=== PATIENT | male | born 1950 | race Caucasian/White ===

== ENCOUNTER 2021-07-04 11:16 | Outpatient (REF) | payer OTHER, SELFPAY ==
[2021-07-04 12:19] LABS: Blood Urea Nitrogen 21 mg/dL (9-16); Estimated Glomerular Filt Rate > 60
== END 2021-07-04 11:17 | disposition home or self-care (01) ==
LOC: HO.LAB 11:16
PROVIDERS: Visit Provider Psychiatry & Neurology Neurology
DX: Z01.812 Encounter for preprocedural laboratory examination (principal); G45.9 Transient cerebral ischemic attack, unspecified
CPT/HCPCS: 36415; 82565; 84520

== ENCOUNTER 2021-07-10 08:26 | Outpatient (REF) | payer OTHER, SELFPAY ==
--- NOTE | ~2021-07-10 | CT_ITS ---
EXAMINATION: CT ANGIOGRAM BRAIN, HEAD CLINICAL INFORMATION: 71-year-old with transient cerebral ischemic attack. COMPARISON: None TECHNIQUE: Test bolus sequences followed by intravenous administration 100 mL of Omnipaque 350 intravenous contrast. Helical imaging was performed in the axial plane from the skull base to the vertex. Delayed postcontrast imaging of the head was also performed. The data was processed at the aeronautical engineering technologist workstation for generation of MIP sequences. The degree of stenosis determined by NASCET criteria. This CT examination was performed using dose optimization techniques as appropriate, variously including the following: *Automated exposure control *Adjustment of mA and/or kV according to patient size (this includes techniques or standardized protocols for targeted exams where dose is matched to indication/reason for exam; i.e. extremities or head) *Use of iterative reconstruction technique Technical note: Study was limited at the skull base due to motion and streak artifact partially obscuring visualization of the lateral and horizontal petrous segments of both ICAs. DLP: 2236 mGy-cm FINDINGS: CTA: The visualized extracranial internal carotid arteries are patent and normal in caliber with smooth contours. Visualization of the internal carotid arteries at the skull base is limited due to artifacts as described above. Within these limitations, there is no significant focal stenosis suspected on either side. The vertical petrous, precavernous and cavernous, ophthalmic and supraclinoid segments of both ICAs are better visualized and demonstrate normal caliber and configuration. The M1 segments are bilaterally symmetric and are normal in caliber and configuration. The MCA bifurcations and the M2 branches are patent and appear normal in caliber. The A1 segments are bilaterally patent and are symmetric with a normal appearance to the A2 segments and anterior communicating artery. The visualized extradural vertebral arteries are patent and normal in caliber bilaterally and appear codominant. The intradural vertebral arteries are patent and normal in caliber. The basilar artery is normal in caliber and configuration. The superior cerebellar artery origins are visualized bilaterally. The posterior cerebral arteries are patent and normal in caliber. The posterior communicating arteries are not visualized. CT BRAIN: Note is made of a 4.4 x 2.8 x 1.9 cm avidly enhancing extra-axial mass seen along the right parietal convexity in a parasagittal location abutting the falx cerebri, with adjacent vasogenic edema and increased local regional vascularity, consistent with a meningioma. No associated hyperostosis is identified. Normal contrast enhancement is still maintained within the adjacent superior sagittal sinus. The remainder of the brain is normal in morphology and attenuation. No midline shift is identified. Delayed postcontrast views demonstrate normal contrast enhancement in the major dural venous sinuses. The ventricular system and subarachnoid spaces are otherwise within normal limits without hydrocephalus. The bony structures are intact. Partially hypoplastic mastoids noted bilaterally with small foci of cerumen in the EACs. Visualized paranasal sinuses are unopacified. Visualized intraorbital soft tissues are grossly unremarkable in appearance within the limitations of the study. CT/CT angio head IMPRESSION: 1. 4.4 cm, right parietal parasagittal extra-axial enhancing mass along the convexity, with local mass effect on the adjacent right parietal lobe with mild to moderate adjacent vasogenic edema and increased local/regional vascularity, suggesting a meningioma. MRI of the brain with contrast recommended to further assess this. 2. Essentially unremarkable CTA of the brain with no evidence for significant intracranial arterial stenosis or occlusion of the visualized major intracranial vessels. The [facility] staff will call to confirm receipt of this report with acknowledgement of the findings and any recommendations.
[2021-07-10] MEDS: iohexoL 350 MG/ML 100 ML INFUS..BTL IV (09:43)
== END 2021-07-10 08:27 | disposition home or self-care (01) ==
LOC: HO.CT 08:26
PROVIDERS: PCP Pediatrics; Visit Provider Psychiatry & Neurology Neurology
DX: G45.9 Transient cerebral ischemic attack, unspecified (principal)
CPT/HCPCS: 70496; Q9967

== ENCOUNTER 2025-03-27 10:49 | Outpatient (AMB) | payer OTHER, SELFPAY ==
--- NOTE | 2025-03-27 10:50 | A.OFFVIS_ITS ---
Intake Visit Reasons: 6m sz Allergies No Known Allergies Allergy (Verified 03/27/25 10:55) Medication List - Last Reconciled 03/27/25 by Beatrice Vargas CNP allopurinol mg PO atorvastatin mg PO levetiracetam orally 2 tablets in the morning and 1 tablet at bedtime; lisinopril mg PO HPI Comments Details: He was doing okay. No definite seizures. No recent episodes of swimming feeling in head or dizziness. Taking levetiracetam 500mg in morning and 250mg at bedtime, occasionally misses dose. Ongoing numbness to L foot, and balance off at times, but no recent falls. Neck stiffness better with acupuncture which may also be helping with L foot symptoms some. Walking about 2 miles/day and swimming few days a week during the winter. He apparently had MRI recently that was stable. Swimming feeling in head and dizziness that last few minutes in early 2024. Some forgetfulness. Some dizziness every now and then. Had confused feeling where things seemed to melt together and felt like seizure was going to come on 2x in summer 2023 for few minutes. Forgetful at times, has trouble remembering names. Has some neck pain and stiffness. Persistent numbness to L foot up to mid-calf continues. Living on [employer] fulltime. Gets yearly MRI done, last MRI in 12/2023 which apparently was okay. He did not have 24hr EEG done. In [place]. Had episodes of dizziness and feeling like he is underwater or in a dream lasting few seconds. Has some forgetfulness, word finding difficulties, brain fog. 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 S/p resection of gr 2 meningioma 08/26/21. Left foot has been persistently numb since surgery. Had 6 wks of RT. He had his first episode of left leg numbness suddenly while doing some lawn care in [place] in January 2021. It came on suddenly and lasted about 5 min. with the feeling that the left leg from the thigh down was numb and that it belonged to someone else. He had 2 to his leg out for it to work. He sat down and it gradually went away. Since then, he has had a few more episodes, each time affecting the left leg. They have occurred at rest and don't seem to be triggered by activity. Sometimes it's associated with a feeling of for swimming feeling with in the head. He sits down and it goes away. It has never involved the right upper extremity the right lower extremity or the left upper extremity. There's been no facial numbness or weakness. F/u scan was good with no tumor growth. S/P RT. [facility] Medical History (Updated 03/23/25 @ 10:30 by Beatrice Vargas, DEBORAH) Hypertension Hyperlipidemia Gout Review of Systems Const Denies chills, Denies daytime sleepiness, Denies difficulty sleeping, Denies fatigue, Denies fever(s), Denies frequent falls, Denies headache(s), Denies increased appetite, Denies poor appetite, Denies snoring, Denies weakness, Denies weight gain and Denies weight loss Eyes Denies loss of vision ENT Denies vertigo, Reports dizziness, Denies headache(s) and Denies neck pain Card Denies chest pain at rest, Denies chest pain with activity, Denies syncope, Denies leg edema, Denies palpitations, Denies dyspnea and Denies dyspnea on exertion Resp Denies cough, Denies dyspnea, Denies dyspnea on exertion and Denies snoring GI Denies abdominal pain, Denies constipation, Denies heartburn, Denies diarrhea and Denies nausea Denies urinary frequency, Denies urinary incontinence and Denies urinary urgency Musc Denies abnormal gait, Denies back pain, Denies myalgias, Denies arthralgias, Denies neck pain, Reports numbness and Reports tingling Neuro Denies abnormal gait, Denies vertigo, Reports dizziness, Denies syncope, Denies frequent falls, Denies headache(s), Denies lack of coordination, Denies loss of vision, Denies memory loss, Reports numbness, Denies Other visual disturbances, Denies restless legs, Denies seizure-like activity, Reports tingling, Denies paresthesias, Denies tremor(s), Denies weakness and Reports other (balance difficulty) Psych Denies anxiety, Denies depression, Denies auditory hallucinations, Denies memory loss and Denies visual hallucinations Endo Denies fatigue and Denies palpitations Physical Exam Const Other: General Appearance:? normal, in no acute distress. Heart:? S1, S2 normal, no murmurs. Lungs:? clear anteriorly and posteriorly. Musculoskeletal:? normal. Extremities:? no edema. Psych:? alert, oriented, cognitive function intact, cooperative with exam. Neuro Other: Abnormal Neurological Findings:?Slight jaw tremor. Mental Status: alert and oriented X 3. Normal attention, orientation, memory, and affect. Cranial Nerves: Pupils are equal, round, and reactive to light. External ocular muscles are intact. Visual simmons are full, no ptosis. Face is symmetrical, no facial weakness or droop. Facial sensations are normal. Tongue protrudes in midline. Palate elevates symmetrically. Shoulder shrugging is normal Motor Examination: Normal muscle tone, bulk and strength. No atrophy or fasciculations. No drift of the extended upper extremities. DTR 2+. Plantars are flexor. Sensory Exam: Normal light touch, temperature, pinprick, vibration, and joint- position sensations. Rhomberg sign is absent. Coordination: No ataxia. No titubation. Gait Exam: Within normal limits. Cerebellar Signs: [id number] is okay. Extrapyramidal System: Slight jaw tremor. No rigidity with normal facial expressions. No bradykinesia. No bradyphrenia. Normal arm swing and posture. No propulsion or retropulsion. Speech: Normal. Results Reviewed Results Reviewed: EEG 07/04/2021: WNL EEG 04/16/2023: WNL 07/10/21 CT/ CTA brain: 4.4 cm, right parietal parasagittal extra-axial enhancing mass along the convexity, with local mass effect on the adjacent right parietal lobe with mild to moderate adjacent vasogenic edema and increased local/regional vascularity, suggesting a meningioma. 2. Essentially unremarkable CTA of the brain with no evidence for significant intracranial arterial stenosis or occlusion of the visualized major intracranial vessels. Last f/u CT was negative for recurrence. Assessment & Plan Assessment & Plan (1) Seizure: Code(s): R56.9 - Unspecified convulsions Category: Medical Plan: Continue levetiracetam 250mg 2 tablets in the morning and 1 tablet at bedtime. He was educated on the importance of medication compliance and risk associated with missed doses, including seizures. (2) Meningioma: Code(s): D32.9 - Benign neoplasm of meninges, unspecified Category: Medical Plan: He apparently had MRI done recently and would have copy of report sent to office. Plan . Medications: New levetiracetam orally 2 tablets in the morning and 1 tablet at bedtime; 270 tabs 1RF 90 days Coding Level of Care Code Est Pt Level 4 (97796) Diagnoses Seizure R56.9 Meningioma D32.9
--- OUTSIDE RECORDS SUMMARY | 2025-03-27 13:26 | XMS_ITS | Encounter Summary ---
Author Organization [facility] Address [address] [place] [address] Phone Care Team Providers Care Freight Car Loader Name Role Phone Taran Melton MD Primary Care Provider [phone] Reason for Referral * MRI/CAT Scan - Closed Specialty Diagnoses / Procedures Referred By Adalberto boyer Referred To Contact Radiology Diagnoses Meningioma, cerebral Procedures MRI Brain Vincent Mistry PA [address] [address] Phone: tel: fax: Referral ID Status Reason Start Date Expiration Date Visits Re quested Visits Authorized [id number] Closed 12/16/2024 12/27/2025 1 1 Encounter Details Date Type Department Care Team (Late st Contact Info) Description 12/16/2024 Ancillary Orders [facility] Radiology - MRI [facility] [place] [place] [address] Vincent Mistry PA [address] [address] Meningioma, cerebral (Primary Dx) Social History Tobacco Use Types Packs/Day Years Used Date Smoking Tobacco: Some Days Cigars Passive Smoke Exposure: Current Alcohol Use Standard Drinks/Week Comments Not Currently 0 (1 standard drink = 0.6 oz pur e alcohol) Education Answer Date Recorded Are you interested in more education? Not on wendy e 02/23/2023 Are you concerned about learning? Not on file 02/23/2023 No 02/23/2023 No 02/23/2023 Food Answer Date Recorded Within the past 6 months we worried whether our food would run out before we got money to buy more. Never True 12/29/2023 Food didn't last Not on file 12/29/2023 Residential Stability Answer Date Recor ded Family situation today data Not on file 12/01 How many times have you move d in the past 12 months? Zero (I did not move) 12/29/2023 Paying for Meds Answer Date Recorded Do you have trouble paying for medicines? No 12/29/2023 Transportation Answer Date Recorded Has the lack of transportati on kept you from medical appointments or from getting medications? No 12/29/2023 Digital Access Answer Date Recorded No 12/29/2023 Yes 12/29/2023 Do you have reliable internet access at home? Ye s 12/29/2023 Device with a working camera? Not on file Intimate Partner Violence Answer Date R ecorded Are you denied basic needs s uch as food, clothing, or medical care? No 08/31/2023 In the past 12 months have y ou been in a relationship with a person who hurts, threatens, or tries to control you? No 08/31/2023 Are you denied basic needs s uch as food, clothing, or medical care? No 08/31/2023 In the past 12 months have y ou been in a relationship with a person who hurts, threatens, or tries to control you? No 08/31/2023 Sex and Gender Information Value Date Recorded Sex Assigned at Not on file Legal Sex Male 3:28 PM EDT Gender Identity Not on file Sexual Orientation Not on file documented as of this encounter Plan of Treatment Upcoming Encounters Date Type Department Care Team (Late st Contact Info) Description 04/18/2025 2:00 PM EST Office Visit [facility] [place] [address] [place] [address] documented as of this encounter Results * MRI BRAIN WITH AND WITHOUT CONTRAST (01/03/2025 4:08 PM EDT) Anatomical Region Laterality Modality Head Magnetic Resonan ce 01/04/2025 1:47 PM EDT Impressions 01/04/2025 1:55 PM EDT 1. Stable postsurgical changes related to resection of a right parietal lesion. No evidence of recurrent disease. 2. No acute intracranial abnormality. Narrative 01/04/2025 1:55 PM EDT MRI BRAIN WITH AND WITHOUT CONTRAST Referring clinician's provided indication for this examination in [facility]: * Brain mass or lesion; 1 YR FOLLOW-UP S/P CRANIOTOMY TECHNIQUE: MRI BRAIN WITH AND WITHOUT CONTRAST Multi-sequence, multi-planar MRI of the brain was performed before and after intravenous contrast. COMPARISON: Brain MRIs from 08/31/2023 and from 12/31/2023. FINDINGS: Brain Parenchyma: Postsurgical changes related to right parietal craniotomy for resection of a right parietal lesion. Stable encephalomalacia and gliosis surrounding the resection site with associated hemosiderin staining. No evidence of acute ischemia, acute intracranial hemorrhage or new mass lesion. There are scattered periventricular and subcortical white matter FLAIR hyperintense foci, most consistent with small vessel ischemic changes in a patient of this age. Ventricular System and Extra-Axial Spaces: Prominent due to diffuse tissue loss, but stable in size and configuration. No evidence of midline shift or hydrocephalus. Extracranial Structures: Expected arterial flow signal is observed at the skull base. Mild scattered paranasal sinus mucosal thickening. Clear bilateral mastoid air cells. No acute orbital abnormality. Procedure Note Germaine Raerdon MD - 01/04/2025 MRI BRAIN WITH AND WITHOUT CONTRAST Referring clinician's provided indication for this examination in [facility]: *Brain mass or lesion; 1 YR FOLLOW-UP S/P CRANIOTOMY TECHNIQUE: MRI BRAIN WITH AND WITHOUT CONTRAST Multi-sequence, multi-planar MRI of the brain was performed before andafter intravenous contrast. COMPARISON: Brain MRIs from 08/31/2023 and from 12/31/2023. FINDINGS: Brain Parenchyma: Postsurgical changes related to right parietalcraniotomy for resection of a right parietal lesion. Stableencephalomalacia and gliosis surrounding the resection site withassociated hemosiderin staining. No evidence of acute ischemia, acute intracranial hemorrhage or new masslesion. There are scattered periventricular and subcortical white matter FLAIRhyperintense foci, most consistent with small vessel ischemic changes in apatient of this age. Ventricular System and Extra-Axial Spaces: Prominent due to diffuse tissueloss, but stable in size and configuration. No evidence of midline shiftor hydrocephalus. Extracranial Structures: Expected arterial flow signal is observed at theskull base. Mild scattered paranasal sinus mucosal thickening. Clearbilateral mastoid air cells. No acute orbital abnormality. IMPRESSION: 1. Stable postsurgical changes related to resection of a right parietallesion. No evidence of recurrent disease. 2. No acute intracranial abnormality. Vincent PRADO [facility] MR HEAD/NECK Final Result documented in this encounter Visit Diagnoses Diagnosis Meningioma, cerebral- Primary Meningioma, cerebral documented in this encounter Care Teams Freight Car Loader Relationship Specialty Start Date [place] [address] [email or web address] PCP - General Internal Medicine 09/03/23 documented as of this encounter Additional Source Comments The information contained in this document represents components of the legal health record. It is not the complete legal health record.[facility]
--- OUTSIDE RECORDS SUMMARY | 2025-03-27 13:26 | XMS_ITS | Encounter Summary ---
Author Organization [facility] Address [address] [place] [phone] Phone Care Team Providers Care Metalworking Specialist Name Role Phone Taran Melton MD Primary Care Provider [phone] Encounter Details Date Type Department Care Team (Late st Contact Info) Description 12/16/2024 Procedure Pass [facility] Radiology - MRI [facility] [place] [place] [address] Social History Tobacco Use Types Packs/Day Years [...] Description 04/18/2025 2:00 PM EST Office Visit [facility] [place] [address] [place] [address] documented as of this encounter Visit Diagnoses Not on filedocumented in this encounter Care Teams Metalworking Specialist Relationship Specialty Start Date End [place] [address] PCP - General Internal Medicine 09/03/23 documented as of this encounter Additional Source Comments The information contained in this document represents components of the legal health record. It is not the complete legal health record.[facility]
--- OUTSIDE RECORDS SUMMARY | 2025-03-27 13:26 | XMS_ITS | Clinical Summary ---
Author Organization [facility] Address [address] [facility] [address] [facility] [address] [place] [address] Phone Care Team Providers Care Distribution Center Associate Name Role Phone Taran Melton MD Primary Care Provider [phone] Allergies No known active allergies Medications aspirin 81 MG EC tablet Take 81 mg by mouth daily. Active sildenafiL (VIAGRA) 50 mg tablet 4 Active lisinopril (PRINIVIL,ZESTRIL) 20 MG tabletIndications:P rimary hypertension TAKE ONE (1) TABLET (20 MG TOTAL) BY MOUTH DAILY. 90 tablet 4 5 Active atorvastatin (LIPITOR) 10 MG tabletIndications:H yperlipidemia, unspecified hyperlipidemia type TAKE ONE (1) TABLET (10 MG TOTAL) BY MOUTH DAILY. 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 90 tablet 3 5 Active levETIRAcetam (KEPPRA) 250 MG IMMEDIATE release tabletIndications:S eizure disorder TAKE TWO (2) TABLETS (500 MG TOTAL) BY MOUTH EVERY MORNING AND ONE (1) TABLET (250 MG TOTAL) EVERY EVENING. 270 tablet 3 5 Active Active Problems Problem Noted Date Diagnosed Date Alcohol use disorder in remission 07/08/2023 Overview (07/08/2023): -last drink 03/18/1989 -attends AA as needed Depressive disorder 07/08/2023 Assessment & Plan (07/08/2023 10:45 AM EST): Does not like medications. Patient is able to keep his depression under control with meditation and has noted improvement since arriving on [place]. Gout 07/08/2023 Overview (11/16/2023): -Allopurinol 300 mg daily Assessment & Plan (10/04/2024 4:31 PM EDT): Orders: Uric acid; Future Assessment & Plan (11/16/2023 8:44 AM EDT): States symptoms stable on current dose of allopurinol. Check uric acid and continue allopurinol pending results. Assessment & Plan (07/08/2023 10:41 AM EST): Patient states that he has not had a flare up since starting the allopruinol. Will monitor and adjust as indicated. Hyperlipidemia 07/08/2023 Overview (11/16/2023): -Atorvastatin 10 mg daily Lab Results Component Value Date CHOL 123 11/16/2023 HDL 41 (L) 11/16/2023 LDL 66 11/16/2023 TRIG 82 11/16/2023 Assessment & Plan (10/04/2024 4:31 PM EDT): Orders: Lipid panel; Future Assessment & Plan (11/16/2023 9:26 AM EDT): Lipids at goal. Continue atorvastatin without changes. Assessment & Plan (10/15/2023 11:21 AM EDT): Check fasting lipids. Assessment & Plan (07/08/2023 10:41 AM EST): Patient states that he just had labs completed a month ago. Will complete CHAYITO to obtain those results. Hypertensive disorder 07/08/2023 Overview (12/29/2023): -Lisinopril 20 mg/day (last increased 10/2023) -09/2023: most ambulatory diastolic BP >80 except two which are in the 50's. Technique reviewed, not resting enough prior to measuring BP. -10/2023: Home cuff and office cuff concordant; hypertensive - increase lisinopril 20 mg/day Assessment & Plan (10/04/2024 4:31 PM EDT): Normotensive on lisinopril, tolerating well. He realizes that his blood pressure is under better control when he is sure to take deep breaths and relax prior to measuring. Diet and exercise reviewed. Continue lisinopril without changes. Orders: Ambulatory [facility] Follow Up Ambulatory [facility] Follow Up; Future Comprehensive metabolic panel; Future CBC; Future Assessment & Plan (08/15/2024 12:17 PM EDT): Majority of blood pressures are well-controlled at home, though limited values for review. Slight diastolic hypertension on repeat today. Advised more frequent blood pressure monitoring at home and ensure he rests for 5 minutes and remeasures and abnormal value. Return in 4 to 6 weeks for review prior to the beginning of his busy season. Reviewed diet and exercise. We reviewed sleep apnea as a possible cause of fatigue in the morning, does not sound like this is likely to be contributing. Discussed proper sleep hygiene which he will work on over the next few weeks and if continued morning fatigue despite sleep hygiene then will investigate further. Orders: Ambulatory [facility] Follow Up Ambulatory [facility] Follow Up; Future Assessment & Plan (06/09/2024 11:32 AM EST): Hypertensive in the office but reasonable control at home, though only has 8 values spread out over the course of the last 6 months for review. Asked that he check blood pressure at home more frequently and return in 1 month for further review. Diet and exercise reviewed. Assessment & Plan (12/29/2023 11:36 AM EDT): Normotensive today in the office and most blood pressures are at goal at home. Congratulated him for incorporating aerobic exercise into his daily routine. Will continue lisinopril without changes for now. He will return in 3 months after his busy work season and we will reassess blood pressure control at that time. BMP reviewed today, potassium normal but creeping up. Will repeat before next visit. Assessment & Plan (11/16/2023 9:25 AM EDT): Most home BP are > goal. Will increase lisinopril to 20 mg/day. BMP reviewed. Recommended 30 minutes of aerobic activity per day 5 days per week. Return in 1 month for review with BMP first. Assessment & Plan (10/15/2023 11:20 AM EDT): Hypertensive in office and at home. Technique reviewed for home monitoring and he does not rest for long enough prior to measuring BP. Reviewed proper technique. Reviewed diet and exercise, recommended increase aerobic activity to 30 minutes/day 5 days/week. Continue lisinopril 10 mg/day pending review of home BP with proper technique, return in 1 month. Check labs. Assessment & Plan (09/07/2023 12:34 PM EDT): Hypertensive today without ambulatory BP for review. Discussed diet, exercise, and risks of long-term uncontrolled HTN. Asked patient to check BP at home, record values, and bring to next visit in 1 month. Assessment & Plan (07/08/2023 10:40 AM EST): Patient on ACEI which he tolerates well. Continue to monitor. Labs recently completed. Patient will complete CHAYITO for those results. Seizure disorder 07/08/2023 Overview (12/29/2023): -levetiracetam 500 mg AM / 250 mg PM -Follows with Neurologist Dr. Nice at [facility] Assessment & Plan (12/29/2023 11:37 AM EDT): MRI scheduled for later this week and he will see neurology in the fall. Will refill levetiracetam for now and he will follow-up with neurology as scheduled. 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 Patient states that he has not had a seizure since his tumor excision. His Neurosurgeon did try to wean his levetiracetam but patient's dizziness and imbalance worsened. Will complete CHAYITO to obtain results. Malignant neoplasm of brain 07/08/2023 Overview (07/08/2023): -unsure of type -craniotomy for resection of tumor 08/27/21 - s/p XRT - 2 normal MRI since -residual LLE numbness Assessment & Plan (07/08/2023 10:39 AM EST): Patient with history of brain cancer s/p resection and XRT. He is unsure of the type of cancer but will complete CHAYITO to obtain that information. Patient continues with follow up and has had 2 MRI without evidence of recurrence. Patient with residual LLE numbness. Encounter for medical examination to establish c are 07/08/2023 Assessment & Plan (07/08/2023 10:46 AM EST): Patient is here today to establish care. Previous PCP in [facility]. Patient will complete CHAYITO to obtain labs. 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 Preventative health care 07/08/2023 Overview (07/08/2023): Colon cancer screenin years ago, no issues to be repeated in 10 years Lung cancer screening: unsure, will complete CHAYITO Prostate cancer screenin month ago, states labs were normal Abdominal Aortic Aneurysm screening: denies family hx Immunizations: Pneumococcal: unsure, will complete CHAYITO Shingles: never Tetanus: unsure, will complete CHAYITO COVID: initial 2, declines booster Flu: This fall Dentist: last visit a few weeks ago Eye Exam: last visit afew weeks ago Diabetes screenin month ago, will complete CHAYITO Lipid screenin month, will complete CH[facility]O Encounters Date Type Department Care Team Description 01/25/2025 Refill [facility] [place] [address] Taran Melton MD Medication Refill 01/03/2025 2:41 PM EDT - 01/03/2025 11:59 PM EDT Hospital Encounter [facility] Radiology - MRI [facility] [place] [address] Vincent Mistry PA Discharge Disposition: Home or Self Care 12/16/2024 Procedure Pass [facility] Radiology - MRI [facility] [place] [address] from Last 3 Months Immunizations Immunization Administration Dates Next Due Pneumococcal conjugate PCV20 09/07/2023 Family History Medical History Relation Comments Alcohol abuse Brother 1 No Known Problems Brother 2 No Known Problems Brother 3 No Known Problems Daughter Dementia Father Dementia Mother Diabetes Sister 1 Breast cancer Sister 2 No Known Problems Sister 3 No Known Problems Son Relation Status Comments Brother 1 (Age 69) Brother 2 Alive Brother 3 Alive Daughter Alive Father (Age 96) Mother (Age 97) Sister 1 (Age 69) Sister 2 Alive Sister 3 Alive Son Alive Social History Tobacco Use Types Packs/Day Years Used Date Smoking Tobacco: Some Days Cigars Passive Smoke Exposure: Current Tobacco Cessation:Ready to Q uit: Not Asked; Counseling Given: Not Answered Alcohol Use Standard Drinks/Week Comments Not Currently [...] on file Sexual Orientation Not on file Last Filed Vital Signs Vital Sign Reading Time Taken Comments Blood Pressure 104/72 10/04/2024 4:17 PM EDT Pulse 79 10/04/2024 4:17 PM EDT Temperature 36.4 C (97.5 F) 06/09/2024 11:00 AM EST Respiratory Rate 16 06/09/2024 11:00 AM EST Oxygen Saturation 95% 10/04/2024 4:17 PM EDT Inhaled Oxygen Concentration - - Weight 90.3 kg (199 lb) 10/04/2024 4:17 PM EDT Height 167.5 cm (5' 5.95 ) 06/09/2024 11:[address] Body Mass Index 32.17 06/09/2024 11:00 AM EST Plan of Treatment Upcoming Encounters Date Type Department Care Team (Late st Contact Info) Description 04/18/2025 2:00 PM EST Office Visit [facility] [place], [place] [id number] [place] [address] Health Maintenance Due Date Last Done Comments DEPRESSION SCREENING 1964 ZOSTER VACCINES (1 of 2) 1971 COLOGUARD 1997 COLONOSCOPY 1997 COLORECTAL CANCER SCREENING 1997 FIT TEST 1997 FOBT 1997 SIGMOIDOSCOPY 1997 VIRTUAL COLONOSCOPY 1997 CREATININE LEVEL 12/28/2024 12/29/2023, , 08/31/2023 POTASSIUM LEVEL 12/28/2024 12/29/2023, 0611/2023, 08/31/2023 INFLUENZA VACCINE (#1) 2024 , 04/11/2021, 05/16/2020, Additional history exists COVID-19 VACCINE ( season) 2025 09/13/2020, 08/22/2020 BLOOD PRESSURE 04/06/2025 10/04/2024 SMOKING Hx and SMOKELESS TOBACCO SCREENING 10/04/2025 10/04/2024 RSV VACCINE (1 - 1-dose 75+ series) 2027 Adult Td,Tdap Booster 10/01/2028 10/01/2018, 019 LIPID PANEL 11/15/2028 11/16/2023, 05/26/2023 ABDOMINAL AORTIC ANEURYSM (AAA) SCREENING Completed 04/19/2018 PNEUMOCOCCAL VACCINES (50+ years) Completed 09/07/2023, 05/16/2020, 04/12/2018 HEPATITIS C SCREENING Completed 11/16/2023, 024 HEPATITIS A VACCINES Aged Out No long er eligible based on patient's age to complete this topic HIB VACCINES Aged Out No longer eligi ble based on patient's age to complete this topic MENINGOCOCCAL VACCINES (ACWY) Aged Out No longer eligible based on patient's age to complete this topic MENINGOCOCCAL VACCINES (B) Aged Out N o longer eligible based on patient's age to complete this topic Medical Devices Not on file Procedures Procedure Name Priority Date/Time Associated Diagnosis Comments MRI BRAIN WITH AND WITHOUT CONTRAST Routine 01/03/2025 4:08 PM EDT Meningioma, cerebral BASIC METABOLIC PANEL Routine 12/29/2023 8:53 AM EDT Primary hypertension LIPID PANEL Routine 11/16/2023 7:22 AM EDT Hyperlipidemia, unspecified hyperlipidemia type HEPATITIS C ANTIBODY, QUALITATIVE Routine 11/16/2023 7:22 AM EDT Need for hepatitis C screening test OUTSIDE AAA TEST Routine 04/19/2018 from Last 3 Months or Most Recently Relevant to Health Maintenance Results * MRI BRAIN WITH AND WITHOUT [...] clinician's provided indication for this examination in [facility]: * Brain mass or lesion; 1 YR [...] No acute orbital abnormality. Procedure Note Germaine Reardon MD - 01/04/2025 MRI BRAIN WITH AND WITHOUT CONTRAST Referring clinician's provided indication for this examination in [facility]: *Brain mass or lesion; 1 YR FOLLOW-UP [...] 2. No acute intracranial abnormality. Vincent PRADO IMOneal MR HEAD/NECK Final Result * Basic metabolic panel (12/29/2023 8:53 AM EDT) SODIUM 139 133 - 145 mmol/L [facility] POTASSIUM 4.6 3.4 - 5.0 mmol/L [facility] CHLORIDE 104 101 - 113 mmol/L [facility] CO2 24 22 - 31 mmol/L [facility] BUN 13 6 - 20 mg/dL [facility] CREATININE 1.07 0.70 - 1.20 mg/dL [facility] GLUCOSE 107 82 - 115 mg/dL [facility] CALCIUM 9.6 8.8 - 10.2 mg/dL [facility] EGFR 74 >59 mL/min/1.7 3m2 [facility] Comment:Estimated glomerular filtration rate calculated using the CKD-EPI refit equation. ANION GAP 11 3 - 17 mmol/L [facility] 12/29/2023 8:53 AM EDT 12/29/2023 9:29 AM EDT us Taran Melton MD LAB BLOOD ORDERABLES Final Res ult Performing Organization Address City/[facility]/[place] [address] * (ABNORMAL) Hepatitis C antibody, qualitative (11/16/2023 7:22 AM EDT) HCV ANTIBODY REACTIVE(A ) Nonreactive [facility] 11/16/2023 7:22 AM EDT 11/16/2023 8:08 AM EDT us Taran Melton MD LAB BLOOD ORDERABLES Final Res ult Performing Organization Address [facility] [place] [address] * (ABNORMAL) Lipid panel (11/16/2023 7:22 AM EDT) HDL 41(L) >65 mg/dL [facility] Comment: FAVORABLE: >55 mg/dL RISK LEVEL: 35-55 mg/dL RISK INDICATOR: <35 mg/dL CHOLESTEROL 123 0 - 200 mg/dL [facility] Comment:DESIRABLE: <200 TRIGLYCERIDES 82 0 - 200 mg/dL [facility] LDL 66 mg/dL [facility] Comment:DESIRABLE: <130 CARDIAC RISK RATIO 3.0 0.0 - 5.0 M [facility] Comment:NORMAL RISK RATIO: 5 .0 OR LESS 11/16/2023 7:22 AM EDT 11/16/2023 8:08 AM EDT us Taran Melton MD LAB BLOOD ORDERABLES Final Res ult Performing Organization Address [facility]/[place] [address] * OUTSIDE ABDOMINAL AORTIC ANEURYSM (AAA) SCREENING (04/19/2018) Abdominal Aortic Aneurysm (AAA) Screening - External Negative screening examination for abdominal aortic aneurysm. us Historical Provider LAB BLOOD ORDERABLES Cherelle l Result from Last 3 Months or Most Recently Relevant to Health Maintenance Insurance * Guarantor: Tee Isidro Account Type Relation to Patient Date of Phone Billing Address Personal/Family Self 1950 [address] [facility] [address] [place] [address] [employer] PPO MEDICARE REPLACEMENT [employer] PPO MEDICARE REPLACEMENT [employer] PPO MEDICARE REPLACEMENT [employer] PPO MEDICARE REPLACEMENT [employer] PPO MEDICARE REPLACEMENT [employer] PPO MEDICARE REPLACEMENT Care Teams Distribution Center Associate Relationship Specialty Start Date End [place] [address] PCP - General Internal Medicine 09/03/23 Additional Source Comments The information contained in this document represents components of the legal health record. It is not the complete legal health record.[facility]
--- OUTSIDE RECORDS SUMMARY | 2025-03-27 13:26 | XMS_ITS | Encounter Summary ---
Author Organization [facility] Address [address] [place] [address] Phone Care Team Providers Care Bus Person Name Role Phone Taran Melton MD Primary Care Provider [phone] Encounter Details Date Type Department Care Team (Late st Contact Info) Description 11/20/2023 Procedure Pass [facility] Radiology - MRI [address] [place] [address] Social History Tobacco Use Types Packs/Day Years Used Date Smoking Tobacco: Some Days Cigars Passive Smoke Exposure: Current Alcohol Use Standard Drinks/Week Comments Not Currently 0 (1 standard drink = 0.6 oz pur e alcohol) Education Answer Date Recorded Are you interested in more education? Not on wendy e 02/23/2023 Are you concerned about learning? Not on file 02/23/2023 No 02/23/2023 No 02/23/2023 Digital Access Answer Date Recorded No 02/23/2023 No 02/23/2023 Reliable internet access at home? Not on file 02/23/2023 Device with a working camera? Not on [...] Description 04/18/2025 2:00 PM EST Office Visit [facility] Primary [place] [address] [place] [address] documented as of this encounter Visit Diagnoses Not on filedocumented in this encounter Care Teams Bus Person Relationship Specialty Start Date End Date [place] [address] PCP - General Internal Medicine 09/03/23 documented as of this encounter Additional Source Comments The information contained in this document represents components of the legal health record. It is not the complete legal health record.[facility]
--- OUTSIDE RECORDS SUMMARY | 2025-03-27 13:26 | XMS_ITS | Encounter Summary ---
Author Organization [facility] Address [address] [place] [address] Phone Care Team Providers Care Diesel Engine Fitter Name Role Phone Taran Melton MD Primary Care Provider [phone] Reason for Referral * MRI/CAT Scan - Closed Specialty Diagnoses / Procedures Referred By Adalberto boyer Referred To Contact Radiology Diagnoses Meningioma, cerebral Procedures MRI Brain Vincent Mistry PA Phone: tel: fax: Referral ID Status Reason Start Date Expiration Date Visits Re quested Visits Authorized [id number] Closed 11/20/2023 12/30/2024 1 1 Encounter Details Date Type Department Care Team (Late st Contact Info) Description 11/20/2023 Ancillary Orders [facility] Radiology - [place] [address] Vincent Mistry PA [address] [place] [address] [address] [place] [address] Meningioma, cerebral (Primary Dx) Social History Tobacco [...] Description 04/18/2025 2:00 PM EST Office Visit [facility] Primary Care Physician Group [place], [place] [phone] [place] [address] [email or web address] documented as of this encounter Results * MRI BRAIN WITH AND WITHOUT CONTRAST (12/31/2023 9:23 AM EDT) Anatomical Region Laterality Modality Head Magnetic Resonan ce 01/01/2024 1:21 PM EDT Impressions 01/01/2024 3:49 PM EDT Status post right parietal craniotomy with expected postsurgical changes. No residual or recurrent extra-axial lesions. ATTESTATION: I, Dr. Yaakov Villarreal as teaching physician, have reviewed the images for this case and if necessary edited the report originally created by Flor Murry. Narrative 01/01/2024 3:49 PM EDT MRI BRAIN WITH AND WITHOUT CONTRAST Referring clinician's provided indication for this examination in Epic: * Meningioma, monitor TECHNIQUE: MRI BRAIN WITH AND WITHOUT CONTRAST Multi-sequence, multi-planar MRI of the brain was performed before and after intravenous contrast. COMPARISON: MRI BRAIN WITHOUT CONTRAST FINDINGS: Brain Parenchyma: Focal encephalomalacia in the right parietal lobe with surrounding T2/FLAIR hyperintensity signal likely gliosis, unchanged. No acute infarct, melissa hemorrhage or abnormal parenchymal enhancement. Nonspecific periventricular and subcortical white matter T2/FLAIR hyperintensities, likely a manifestation of chronic small vessel disease. Diffuse brain parenchymal volume loss. Focal suspected signal in the right parietal surgical bed, likely representing chronic blood products. Ventricular System and Extra-Axial Spaces: There is no evidence of midline shift or hydrocephalus. Basal cisterns are patent. Extracranial Structures: Arterial flow voids in the skull base are present. Right parietal craniotomy with expected postsurgical changes. There is persistent dural thickening/enhancement under the bone flap. Mastoid air cells are clear. Scattered mucosal thickening in the ethmoidal air cells. Visualized orbits and globes are unremarkable. Procedure Note Yaakov Villarreal MD, PhD - 01/01/2024 MRI BRAIN WITH AND WITHOUT CONTRAST Referring clinician's provided indication for this examination in [facility]: *Meningioma, monitor TECHNIQUE: MRI BRAIN WITH AND WITHOUT CONTRAST Multi-sequence, multi-planar MRI of the brain was performed before andafter intravenous contrast. COMPARISON: MRI BRAIN WITHOUT CONTRAST FINDINGS: Brain Parenchyma: Focal encephalomalacia in the right parietal lobe withsurrounding T2/FLAIR hyperintensity signal likely gliosis, unchanged. Noacute infarct, melissa hemorrhage or abnormal parenchymal enhancement.Nonspecific periventricular and subcortical white matter T2/FLAIRhyperintensities, likely a manifestation of chronic small vessel disease.Diffuse brain parenchymal volume loss. Focal suspected signal in the rightparietal surgical bed, likely representing chronic blood products. Ventricular System and Extra-Axial Spaces: There is no evidence of midlineshift or hydrocephalus. Basal cisterns are patent. Extracranial Structures: Arterial flow voids in the skull base arepresent. Right parietal craniotomy with expected postsurgical changes.There is persistent dural thickening/enhancement under the bone flap. Mastoid air cells are clear. Scattered mucosal thickening in the ethmoidalair cells. Visualized orbits and globes are unremarkable. IMPRESSION: Status post right parietal craniotomy with expected postsurgical changes.No residual or recurrent extra-axial lesions. ATTESTATION: I, Dr. Yaakov Villarreal as teaching physician, have reviewedthe images for this case and if necessary edited the report originallycreated by Flor Murry. Vincent PRADO IMG MR HEAD/NECK Final Result documented in this encounter Visit Diagnoses Diagnosis Meningioma, cerebral- Primary Meningioma, cerebral documented in this encounter Care Teams Diesel Engine Fitter Relationship Specialty Start Date End [place] [address] [email or web address] PCP - General Internal Medicine 09/03/23 documented as of this encounter Additional Source Comments The information contained in this document represents components of the legal health record. It is not the complete legal health record.[facility]
--- OUTSIDE RECORDS SUMMARY | 2025-03-27 13:27 | XMS_ITS | Encounter Summary ---
Author Organization [facility] Address [address] [place] [phone] Phone Care Team Providers Care Valuation Manager Name Role Phone Unknown, Unknown Primary Care Provider Taran Carmen MD Unavailable Taran Melton MD Primary Care Provider [phone] Encounter Details Date Type Department Care Team (Late st Contact Info) Description 08/31/2023 Procedure Pass [facility] Radiology - MRI [facility] [place] [address] Social History Tobacco Use Types Packs/Day Years [...] on file documented as of this encounter Functional Status * Calculated C-SSRS Risk Score (Lifetime/Recent) Answer Date of Assessment Author No Risk Indicated 08/31/2023 2:06 PM EDT Edgar Aguilera RN * Arthur Suicide Severity Rating Scale (Screener/Recent Self-Report) Question Answer Date of Assessment Author 1. Wish to be (Past 1 Month) No 024 2:06 PM EDT Edgar Aguilera RN 2. Non-Specific Active Suici higinio Thoughts (Past 1 Month) No 08/31/2023 2:06 PM EDT Fredo Aguilera RN 6. Suicidal Behavior (Lifetime) No 2:06 PM EDT Edgar Aguilera RN documented as of this encounter Plan of Treatment Upcoming Encounters Date Type Department Care Team (Late st Contact Info) Description 04/18/2025 2:00 PM EST Office Visit [facility] [place] [address] [place] [address] [email or web address] documented as of this encounter Visit Diagnoses Not on filedocumented in this encounter Care Teams Valuation Manager Relationship Specialty Start Date End Date Unknown, Unknown, MD PCP - General 02/23/23 09/02/23 [place] [address] [email or web address] PCP - General Internal Medicine 09/03/23 [place] [address] [email or web address] Internal Medicine 02/23/23 09/02/23 documented as of this encounter Additional Source Comments The information contained in this document represents components of the legal health record. It is not the complete legal health record.[facility]
--- OUTSIDE RECORDS SUMMARY | 2025-03-27 13:27 | XMS_ITS | Clinical Summary ---
Author Organization [facility] it Address [address] [place] [address] Care Team Providers Care Systems Accountant Name Role Phone Catie العراقي MD Primary Care Provider Allergies No known active allergies Medications allopurinoL (ZYLOPRIM) 300 mg tablet Take 1 tablet (300 mg total) by mouth 1 (one) time each day. 4 Active aspirin 81 mg EC tablet Take 1 tablet (81 mg total) by mouth 1 (one) time each day. Active atorvastatin (LIPITOR) 10 mg tablet Take 1 tablet (10 mg total) by mouth 1 (one) time each day. 4 Active levETIRAcetam (KEPPRA) 500 mg tablet Take 1 tablet (500 mg total) by mouth 2 (two) times a day. Active lisinopriL (PRINIVIL,ZEST RIL) 10 mg tablet Take 1 tablet (10 mg total) by mouth 1 (one) time each day. 4 Active sildenafiL (VIAGRA) 50 mg tablet TAKE ONE TABLET BY MOUTH APPROXIMATELY ONE HALF HOUR BEFORE SEXUAL ACTIVITY. DO NOT USE MORE THAN ONE DOSE DAILY 4 Active Active Problems Problem Noted Date Diagnosed Date Primary hypertension 11/26/2021 Seizures (CMS/HCC V24, CMS/HCC V28) 11/26/2021 Meningioma, cerebral (CMS/HCC V24, CMS/HCC V28) 09/06/2021 Overview (07/04/2024): Last Assessment & Plan: Mr. Sahu is here for a second postop visit since his right posterior frontal/parietal craniotomy for resection of a grade 2 meningioma on 08/27/2021. He has had no issues with headache, nausea/vomiting or dizziness but the left foot numbness up to the ankle has persisted. This does not affect his gait and he feels safe. He has had no further seizure-like activity but remains on Keppra. He reports being a little tired and noticing very mild disorientation and some memory changes. He has had [address] Yañez so far and is scheduled until the end of October. On exam, his incision is well-healed, strength is 5 out of 5 with no focal findings, there is no pronator drift, gait is steady with no assistive device. We discussed the general follow-up with serial imaging for this meningioma and will follow the protocol for postradiation imaging. Benign neoplasm of supratent orial region of brain (CMS/HCC V24, CMS/HCC V28) 08/06/2021 Overview (07/04/2024): Last Assessment & Plan: I reviewed this in detail with Mr. Sahu and I believe this right parietal tumor is likely a meningioma. I discussed the grading system and while 96% are grade 1, there is a higher risk of seeing a grade 2 or grade 3 in men. I believe the reason for the recent seizures is the peritumoral edema which could be temporized with steroids but will not resolve satisfactorily until the tumor is removed. This is too large to treat with radiation and given the risk of higher grade, we will plan gross total resection. We discussed the details of a right parietal craniotomy with navigation, the risks including bleeding, stroke, seizures and paralysis particularly of the left leg which is currently symptomatic area, benefits and anticipated postoperative course including the hospital stay and potential need for radiation depending on the pathology. All questions were answered and they wish to proceed. I have already recommended that he remain on Keppra for at least 2 to 4 weeks postop. Positive hepatitis C antibody test 04/12/2018 Hyperlipidemia 09/11/2017 Gout 10/07/2016 Overview (07/04/2024): On allopurinol Encounters Date Type Department Care Team Description 02/27/2025 Telephone Neurosurgery [place] [facility] [place] [address] [place] [address] Deborah Robertson MD from Last 3 Months Surgical History Surgery Date Site/Laterality Comments OTHER SURGICAL HISTORY PROCEDURE: DENIES PREVIOUS SURGERY COLONOSCOPY 01/09/2017 PROCEDURE: HISTORICAL COLONOSCOPY; COMMENT: hyperplastic polyp, hemorrhoids and tics; repeat in 10 yrs OTHER SURGICAL HISTORY 08/27/2021 Right PROCEDURE: CT UNLISTED CRANIOFACIAL & MAXILLOFACIAL PROCEDURE; COMMENT: Right parietal craniotomy for resection of tumor by Dr. Rita Robertson HERNIA REPAIR Right PROCEDURE: HISTORICAL HERNIA REPAIR/ING; COMMENT: 2022 Medical History Medical History Date Comments Gout 10/07/2016 DX:Gout; COMMENT : On allopurinol Family History Medical History Relation Name Comments Other: cirrhosis Brother 1 Diabetes Sister 1 Relation Name Status Comments Brother 1 Brother 2 Father dementia Mother dementia Sister 1 Sister 2 Social History Tobacco Use Types Packs/Day Years Used Date Smoking Tobacco: Every Day Smokeless Tobacco: Never Alcohol Use Standard Drinks/Week Comments No 0 (1 standard drink = 0.6 oz pur e alcohol) Sex and Gender Information Value Date Recorded Sex Assigned at Not on file Legal Sex Male 10:05 AM EST Gender Identity Not on file Sexual Orientation Not on file Obstetrics History Last Filed Vital Signs Vital Sign Reading Time Taken Comments Blood Pressure 110/64 05/26/2023 1:27 PM EST Pulse 66 05/26/2023 1:27 PM EST Temperature - - Respiratory Rate - - Oxygen Saturation - - Inhaled Oxygen Concentration - - Weight 88.1 kg (194 lb 3.2 oz) 05/26/2023 1:27 P M EST Height 170.2 cm (5' 7 ) 05/26/2023 1:27 PM EST Body Mass Index 30.42 05/26/2023 1:27 PM EST Plan of Treatment Health Maintenance Due Date Last Done Comments Hepatitis A Vaccines (1 of 2 - Risk 2-dose series) 1969 Zoster Vaccines (1 of 2) 1969 COVID-19 Vaccine (3 - Pfizer risk series) 10/11/2020 09/13/2020, 08/22/2020 Falls Risk Assessment 05/10/2022 Social Influencers of Health Screening 05/10/2022 Hypertension/CHF/CAD Annual BMP Blood Test 05/26/2024 05/26/2023 Medicare Annual Wellness Visit 05/26/2024 05/26/2023 Depression Screening 06/01/2024 Influenza Vaccine (#1) 2025 3, 04/11/2021, 05/16/2020, Additional history exists Colorectal Cancer Screening: Colonoscopy 01/09/2027 01/09/2017 RSV Immunization Adult Patients (1 - 1-dose 75+ series) 2027 DTaP,Tdap,and Td Vaccines (3 - Td or Tdap) 10/01/2028 10/01/2018, 10/01/2018 Cholesterol Screening (Lipid Panel) 11/15/2028 11/16/2023, 05/26/2023 Abdominal Aortic Aneurysm (AAA) Screen Completed 04/19/2018, 04/19/2018 Pneumococcal Vaccine: 50+ Years Completed 09/07/2023, 05/16/2020, 04/12/2018 Hepatitis C Screening Completed 11/16/2023, 018 HIB Vaccines Aged Out No longer eligi ble based on patient's age to complete this topic HPV Vaccines Aged Out No longer eligi ble based on patient's age to complete this topic Hepatitis B Vaccines Aged Out No long er eligible based on patient's age to complete this topic IPV Vaccines Aged Out No longer eligi ble based on patient's age to complete this topic MMR Vaccines Aged Out No longer eligi ble based on patient's age to complete this topic Meningococcal ACWY Vaccine Aged Out N o longer eligible based on patient's age to complete this topic Meningococcal B Vaccine Aged Out No l onger eligible based on patient's age to complete this topic RSV Immunization Patients Under 20 months Aged Out No longer eligible based on patient's age to complete this topic Varicella Vaccines Aged Out No longer eligible based on patient's age to complete this topic Procedures Procedure Name Priority Date/Time Associated Diagnosis Comments ANNUAL BMP BLOOD TEST Routine 05/26/2023 LIPID PANEL Routine 05/26/2023 US ABDOMINAL AORTA REAL TIME SCREEN STUDY AAA Routine 04/19/2018 9:15 AM EST Encounter for screening for cardiovascular disorders HEPATITIS C SCREENING Routine 04/12/2018 COLONOSCOPY Routine 01/09/2017 from Last 3 Months or Most Recently Relevant to Health Maintenance Results * Annual BMP Blood Test (05/26/2023) [facility] Annual BMP Blood Test abstracted Result [facility] Provider [facility] [place] Final Result * Lipid panel (05/26/2023) [facility] LDL/HDL Ratio 3 0 - 4 Triglycerides 113 0 - 150 mg/dL Cholesterol 146 0 - 200 mg/dL HDL 43 >=40 mg/dL LDL Cholesterol 81 0 - 100 mg/dL Blood Venous blood specimen / Unknown Result [facility] Provider LAB BLOOD ORDERABLES Cherelle l Result * US ABDOMINAL AORTA REAL TIME SCREEN STUDY AAA (04/19/2018 9:15 AM EST) Anatomical Region Laterality Modality Ultrasound 04/13/2018 9:44 AM EST Narrative 04/19/2018 9:18 AM EST History: Screening for abdominal aortic aneurysm. Ultrasound of the abdominal aorta: The abdominal aorta is normal in course, caliber and configuration. Proximal aortic AP diameter is 2.7 cm maximum. Mid aortic diameter is 2.1 cm, and distal aortic diameter is 1.8 cm. The common iliac arteries are normal in caliber as well. IMPRESSION: Negative screening examination for abdominal aortic aneurysm. Procedure Note Alex Real MD - 05/20/2022 History: Screening for abdominal aortic aneurysm. Ultrasound of the abdominal aorta: The abdominal aorta is normal incourse, caliber and configuration. Proximal aortic AP diameter is 2.7 cm maximum. Mid aorticdiameter is 2.1 cm, and distal aortic diameter is 1.8 cm. The common iliac arteries are normalin caliber as well. IMPRESSION: Negative screening examination for abdominal aortic aneurysm. [facility] IMG US PROCEDURES Final Resu lt * Hepatitis C Screening (04/12/2018) [facility] Hepatitis C Screening abstracted Result [facility] Provider HEALTH MAINTENANCE Final Result * Colonoscopy (01/09/2017) Colonoscopy no interpretation , abstracted Anatomical Region Laterality Modality Other Historical Provider HEALTH MAINTENANCE Final Result from Last 3 Months or Most Recently Relevant to Health Maintenance Insurance * Guarantor: Tee Sahu Account Type Relation to Patient Date of Phone Billing Address Personal/Family Self [address] [place] [address] [employer] on file Advance Directives Documents on File Type Date Recorded Patient Manager Distribution Expl anation Health Care Decision (hx) 08/28/2021 AD [place] DIRECTIVE Health Care Decision (hx) 08/28/2021 AD [place]GA DIRECTIVE Health Care Decision (hx) 08/28/2021 AD [place]GA DIRECTIVE Health Care Decision (hx) 08/28/2021 AD VEGA DIRECTIVE Health Care Decision (hx) 08/28/2021 AD VEGA DIRECTIVE Health Care Decision (hx) 08/28/2021 AD VEGA DIRECTIVE Health Care Decision (hx) 08/28/2021 AD VEGA DIRECTIVE Health Care Decision (hx) 08/28/2021 AD VEGA DIRECTIVE Health Care Decision (hx) 08/28/2021 AD VEGA DIRECTIVE Health Care Decision (hx) 08/28/2021 AD VEGA DIRECTIVE Health Care Decision (hx) 08/28/2021 AD VEGA DIRECTIVE Health Care Decision (hx) 08/28/2021 AD VEGA DIRECTIVE Health Care Decision (hx) 08/28/2021 AD VEGA DIRECTIVE Health Care Decision (hx) 08/28/2021 AD VEGA DIRECTIVE Health Care Decision (hx) 08/27/2021 AD VEGA DIRECTIVE Care Teams Systems Accountant Relationship Specialty Start Date End Date Catie العراقي MD [address] [place] [id number] PCP - General Internal Medicine 10/14/21
== END 2025-03-27 11:50 | disposition home or self-care (01) ==
LOC: HO.HSM 10:50
PROVIDERS: PCP Pediatrics; Visit Provider Registered Nurse
DX: R56.9 Unspecified convulsions (principal); D32.9 Benign neoplasm of meninges, unspecified
CPT/HCPCS: 99214